=== PATIENT | female | born 1980 | race African-American/Black ===

== ENCOUNTER 2016-10-30 02:25 | Emergency (ER) | payer MEDICAID, OTHER ==
[2016-10-30] MEDS ORDERED: CEPHALEXIN 500 MG CAPSULE PO ONE (05:13)
[2016-10-30] MEDS ORDERED: SULFAMETHOXAZOLE/TRIMETHOPRIM 800-160 MG TABLET PO ONE (05:13)
[2016-10-30] MEDS ORDERED: LIDOCAINE 1% INJ-PF (10 MG/ML) 30 ML SDV INJ ONE (05:13)
[2016-10-30] MEDS ORDERED: HYDROCODONE/ACETAMINOPHEN 5-325 MG TABLET PO ONE (05:13)
--- NOTE | 2016-10-30 06:46 | ER Document Report ---
ED Skin Rash/Insect Bite/Abscs - General Chief Complaint: Abscess Stated Complaint: ABSCESS ON RIGHT BREAST Notes: Patient is a 36-year-old female presents emergency Department complaining of right breast abscess. Patient states that she has had this abscess for about 7 days. She was states that it is constant and located under her right breast and started draining today a yellow pus with odor. Patient states that she was initiated on antibiotics by her primary care physician Asst. Sue Andersen on October 28. Since then she went to a urgent care last night and was referred to surgery for evaluation. Patient states that she does have a history of skin abscesses but never one this large. She is unaware of any history of MRSA. TRAVEL OUTSIDE OF THE [place] IN LAST 30 DAYS: No - Related Data Allergies/Adverse Reactions: erythromycin base Allergy (Verified 10/30/16 02:36) latex Allergy (Verified 10/30/16 02:36) tetracycline Allergy (Verified 10/30/16 02:36) tramadol [From Ultram] Allergy (Verified 10/30/16 02:36) Past Medical History - Social History Smoking Status: Never Smoker Chew tobacco use (# tins/day): No Frequency of alcohol use: Social Drug Abuse: None Family History: Reviewed & Not Pertinent Patient has suicidal ideation: No Patient has homicidal ideation: No Neurological Medical History: Reports: Hx Migraine Renal/ Medical History: Denies: Hx Peritoneal Dialysis Review of Systems - Review of Systems Constitutional: No symptoms reported Cardiovascular: No symptoms reported Respiratory: No symptoms reported Skin: See HPI -: Yes All other systems reviewed and negative Physical Exam - Vital signs Vitals: Temp Pulse Resp BP Pulse Ox 98.2 F 92 17 126/81 H 98 10/30/16 02:32 10/30/16 02:32 10/30/16 02:32 10/30/16 02:32 10/30/16 02:32 - Notes Notes: PHYSICAL EXAM GENERAL: Alert, interacts well. LUNGS: Clear to auscultation bilaterally, no wheezes, rales, or rhonchi. No respiratory distress. HEART: Regular rate and rhythm. No murmurs, gallops, or rubs. NEUROLOGICAL: Alert and oriented x4. Normal speech. PSYCH: Normal affect, normal mood. - Skin Skin Temperature: Warm Skin Moisture: Dry Skin Color: Normal Skin Turgor: Elastic Skin irregularity: Abscess - Abscesses palpable on the underside the right breast measuring about 8 cm x 5 cm. Central area of erythema and skin breakdown with visible drainage. Mild palpation to the area expectorated pus. Location of irregularity: Other - Right breast Irregularity with: Swelling, Tenderness, Warmth, Induration Course - Re-evaluation Re-evalutation: 10/30/16 07:33 Patient is a 36-year-old female who presents emergency Department with right breast abscess. Site was incised and drained of about 8200 mL of purulent material. Iodoform packing was then placed in dry sterile dressing applied. Discussed with patient about adding an additional antibiotic for coverage of MRSA. Patient is agreeable. Patient has Vicodin prescription from her PCP. Discussed with her indications to follow-up with surgery at her appointment on Friday for evaluation. Discussed with her signs and symptoms to be aware of to return to the emergency department. Patient agreeable with plan - Vital Signs Vital signs: Temp Pulse Resp BP Pulse Ox 98.2 F 92 17 126/81 H 98 10/30/16 02:32 10/30/16 02:32 10/30/16 02:32 10/30/16 02:32 10/30/16 02:32 Procedures - Incision and Drainage Right Chest Type: Simple Anesthetic type: 1% Lidocaine mL's of anesthetic: 5 Blade size: 11 I&D procedure: Chlorprep applied, Iodoform packing placed Incision Method: Incision made with needle Amount/type of drainage: 80-100 Notes: 10/30/16 07:33 Yellow pus with odor Adult Front & Back picture: 1 - Abscess Discharge - Discharge Clinical Impression: Abscess Condition: Good Disposition: HOME, SELF-CARE Instructions: Abscess ([facility]), Trimethoprim-Sulfa ([facility]), Post Incision and Drainage Additional Instructions: Please follow-up with surgeon for scheduled appointment on Friday. Return to the emergency department with worsening pain, fever, chills, lethargy. Prescriptions: Sulfamethoxazole/Trimethoprim [Bactrim Ds Tablet] 1 each PO BID 10 Days Forms: Parent Work Note Referrals: SUE ANDERSEN PA-C [NO LOCAL MD] - Follow up as needed MILAD BECKMAN MD [ACTIVE STAFF] - 11/01/16
[2016-10-30 07:37] VITALS: BP 125/80
== END 2016-10-30 07:37 | disposition home or self-care (01) ==
LOC: ER 02:25
PROC: 0H9TXZZ (ICD-10-PCS; principal; 2016-10-30)
DX: N61.1 Abscess of the breast and nipple (principal); Z88.3 Allergy status to other anti-infective agents; Z91.040 Latex allergy status
CPT/HCPCS: 99283; 87070; 87205; 87075; 87077; 87186; 10060; J3490

== ENCOUNTER → 2017-08-29 | Outpatient (CLI) | payer MEDICAID ==
--- NOTE | 2017-08-29 19:30 | WOMENS IMAGING REPORT ---
EXAM DESCRIPTION: U/S BREAST UNILATERAL, COMPL COMPLETED DATE/TIME: 08/29/2017 9:01 am REASON FOR STUDY: HYDRADENITIS BILATERAL L73.2 HIDRADENITIS SUPPURATIVA COMPARISON: None. TECHNIQUE: Real-time and static grayscale imaging performed of the right and left breast targeted to the area of clinical concern. Selected color Doppler images recorded. LIMITATIONS: None. FINDINGS: Ultrasound of the right and left breast was performed. Along the right breast inframammary fold 4-5 o'clock position, a subcutaneous fluid collection is pre sent with low level internal echoes and surrounding color flow, likely an infected or inflamed sebace ous cyst or hidradenitis. This measures 2.7 x 0.8 cm in size. There is adjacent skin thickening. Along the right breast 3 o'clock position, a subcutaneous fluid collection is present with low level internal echoes and surrounding color flow, 1.5 x 0.4 cm in size with overlying skin thickening, also likely an inflamed or infected sebaceous cyst or hidradenitis. Along the left breast at the 6 o'clock position, a subcutaneous fluid collection is present with low level internal echoes and minimal surrounding color flow, likely an infected sebaceous cyst or hidrad enitis. This measures 1.5 x 0.7 cm in size. IMPRESSION: Hidradenitis as above BIRAD: 1 Negative. RECOMMENDATION: RECOMMENDED FOLLOW-UP: Follow-up as clinically indicated. COMMENT: The [employer] (ACR) has developed recommendations for screening MRI of the breasts in certain patient populations, to be used in conjunction with mammography. Breast MRI s urveillance may be appropriate for women with more than 20% lifetime risk of developing breast cancer as determined by genetic testing, significant family history of the disease, or history of mantle r adiation for Hodgkins Disease. ACR Practice Guidelines 2008. TECHNICAL DOCUMENTATION: JOB ID: [id number] [employer]- All Rights Reserved Reading location - IP/workstation name: [facility]
--- NOTE | 2017-08-29 19:30 | WOMENS IMAGING REPORT ---
EXAM DESCRIPTION: U/S BREAST UNILATERAL, COMPL COMPLETED DATE/TIME: 08/29/2017 9:01 am REASON FOR STUDY: HYDRADENITIS BILATERAL L73.2 HIDRADENITIS SUPPURATIVA COMPARISON: None. TECHNIQUE: Real-time and static grayscale imaging performed of the right and left breast targeted to the area of clinical concern. Selected color Doppler images recorded. LIMITATIONS: None. FINDINGS: Ultrasound of the right and left breast was performed. Along the right breast inframammary fold 4-5 o'clock position, a subcutaneous fluid collection is pre sent with low level internal echoes and surrounding color flow, likely an infected or inflamed sebace ous cyst or hidradenitis. This measures 2.7 x 0.8 cm in size. There is adjacent skin thickening. Along the right breast 3 o'clock position, a subcutaneous fluid collection is present with low level internal echoes and surrounding color flow, 1.5 x 0.4 cm in size with overlying skin thickening, also likely an inflamed or infected sebaceous cyst or hidradenitis. Along the left breast at the 6 o'clock position, a subcutaneous fluid collection is present with low level internal echoes and minimal surrounding color flow, likely an infected sebaceous cyst or hidrad enitis. This measures 1.5 x 0.7 cm in size. IMPRESSION: Hidradenitis as above BIRAD: 1 Negative. RECOMMENDATION: RECOMMENDED FOLLOW-UP: Follow-up as clinically indicated. COMMENT: The [employer] (ACR) has developed recommendations for screening MRI of the breasts in certain patient populations, to be used in conjunction with mammography. Breast MRI s urveillance may be appropriate for women with more than 20% lifetime risk of developing breast cancer as determined by genetic testing, significant family history of the disease, or history of mantle r adiation for Hodgkins Disease. ACR Practice Guidelines 2008. TECHNICAL DOCUMENTATION: JOB ID: [id number] [employer]- All Rights Reserved Reading location - IP/workstation name: [facility]
== END ==
LOC: WI 07:13
PROVIDERS: ATTEND Physician Assistant
DX: L73.2 Hidradenitis suppurativa (principal)
CPT/HCPCS: 76641

== ENCOUNTER 2018-01-17 15:50 | Emergency (ER) | payer MEDICAID ==
[2018-01-17 15:57] VITALS: BP 139/83
[2018-01-17] MEDS ORDERED: DIPHENHYDRAMINE HCL 50 MG/ML VIAL IM ONE (16:10)
[2018-01-17] MEDS ORDERED: METOCLOPRAMIDE HCL INJ/PF 10 MG/2 ML SDV IM ONE (16:10)
--- NOTE | 2018-01-17 16:18 | ER Document Report ---
ED General - General Chief Complaint: Headache <24 hrs old Stated Complaint: HEADACHE Time Seen by Provider: 01/17/18 16:06 Notes: 37-year-old female PMH migraines here with complaints of migraine headache that started earlier this morning. Gradual onset progressively worsening constant nonradiating left-sided headache. She has tried Excedrin without much relief. Headache is worse with light and sound. She has had some intermittent blurry vision as well as nausea but no vomiting numbness tingling weakness fevers neck pain. She reports this feels like 1 of her typical migraines, of which, she suffers from once per month since she was a child. She does not follow with a neurologist for her migraine headaches but instead sees her PCP for them. TRAVEL OUTSIDE OF THE [place] IN LAST 30 DAYS: No - Related Data Allergies/Adverse Reactions: erythromycin base Allergy (Verified 01/17/18 16:12) latex Allergy (Verified 01/17/18 16:12) tetracycline Allergy (Verified 01/17/18 16:12) tramadol [From Ultra] Allergy (Verified 01/17/18 16:12) Past Medical History - Social History Smoking Status: Unknown if Ever Smoked Family History: Reviewed & Not Pertinent Neurological Medical History: Reports: Hx Migraine Renal/ Medical History: Denies: Hx Peritoneal Dialysis Review of Systems - Review of Systems Notes: See history of present illness for pertinent positive review of systems; otherwise all review of systems have been reviewed and are negative Physical Exam - Vital signs Vitals: Temp Pulse Resp BP Pulse Ox 98.2 F 73 16 139/83 H 97 01/17/18 15:55 01/17/18 15:55 01/17/18 15:55 01/17/18 15:55 01/17/18 15:55 - Notes Notes: PHYSICAL EXAMINATION: GENERAL: Well-appearing and in no acute distress. HEAD: Atraumatic, normocephalic. EYES: Pupils unequal bilaterally (congenital anisocoria) but they are reactive to light, extraocular movements intact, sclera anicteric, conjunctiva are normal. ENT: nares patent, oropharynx clear without exudates. Moist mucous membranes. NECK: Normal range of motion, supple without lymphadenopathy LUNGS: CTAB and equal. No wheezes rales or rhonchi. HEART: Regular rate and rhythm without murmurs ABDOMEN: Soft, no tenderness. No facial grimacing/wincing upon palpation. No guarding, no rebound. EXTREMITIES: Normal range of motion, no pitting edema. No cyanosis. NEUROLOGICAL: Cranial nerves grossly intact. Normal sensory/motor exams. Finger to nose intact. Normal steady gait. PSYCH: Normal mood, normal affect. SKIN: Warm, Dry, normal turgor, no rashes or lesions noted Course - Re-evaluation Re-evalutation: 01/17/18 16:14 MEDICAL DECISION MAKING: Given the history/exam, I have low clinical suspicion for acute emergent pathology i.e. head bleed tumor Will give a dose of Reglan and Benadryl here and prescription Fioricet Instructed follow-up PCP and/or neurology next few days Patient understands and agrees to the plan of care - Vital Signs Vital signs: Temp Pulse Resp BP Pulse Ox 98.2 F 73 16 139/83 H 97 01/17/18 15:55 01/17/18 15:55 01/17/18 15:55 01/17/18 15:55 01/17/18 15:55 Discharge - Discharge Clinical Impression: Migraine Qualifiers: Migraine type: unspecified Status migrainosus presence: without status migrainosus Intractability: not intractable Qualified Code(s): G43.909 - Migraine, unspecified, not intractable, without status migrainosus Condition: Good Disposition: HOME, SELF-CARE Additional Instructions: You were seen in the emergency department at [facility]. Use the prescribed medication as needed for headaches. If you were given any sedating medications, such as Fioricet, be sure not to operate heavy machinery (example - driving) and be sure you are not too sedated to walk appropriately. Please followup with your primary physician in the next few days for further management /evaluation. Please return to the emergency department for worsening of symptoms or any symptom that you deem to be concerning or life-threatening. Thank you for allowing us to be part of your care. Prescriptions: Butalb/Acetaminophen/Caffeine [Fioricet (50-325-40 mg) Tablet] 1 tab PO Q4HP PRN #10 tab PRN Reason: Referrals: ISIS ANDERSEN PA-C [Primary Care Provider] - Follow up in 3-5 days
== END 2018-01-17 16:22 | disposition home or self-care (01) ==
LOC: ER 15:50
DX: G43.909 Migraine, unspecified, not intractable, without status migrainosus (principal); H53.8 Other visual disturbances; R11.0 Nausea; Z88.1 Allergy status to other antibiotic agents; Z91.040 Latex allergy status; Z88.5 Allergy status to narcotic agent
CPT/HCPCS: 99283; 96372; J1200; J2765